=== PATIENT | male | born 1985 | race Caucasian/White ===

== ENCOUNTER 2020-12-21 15:18 | Emergency (ER) | payer OTHER, SELFPAY ==
--- NOTE | ~2020-12-21 | XR_ITS ---
EXAMINATION: XR ankle LT min 3V DATE: 12/21/2020 15:42 INDICATION: Left ankle pain and swelling. TECHNIQUE: 4 views of left ankle were obtained. COMPARISON: None. FINDINGS: Bone alignment is normal. No fracture. There is mild osteoarthritis of talonavicular joint. Ankle soft tissue swelling is noted. IMPRESSION: 1. Mild osteoarthritis of talonavicular joint. Reviewed, dictated and finalized at location A.
--- NOTE | ~2020-12-21 | XR_ITS ---
EXAMINATION: XR foot LT min 3V DATE: 12/21/2020 15:42 INDICATION: Left foot pain and swelling. TECHNIQUE: 4 views of left foot were obtained. COMPARISON: None. FINDINGS: Bone alignment is normal. No fracture. There is mild osteoarthritis of talonavicular joint and first metatarsophalangeal joint. IMPRESSION: 1. Mild polyarticular osteoarthritis. Reviewed, dictated and finalized at location A.
[2020-12-21 15:27] VITALS: BP 107/67; PULSE 92; RESP 16; TEMP 37.1; O2SAT 99
--- NOTE | 2020-12-21 15:32 | ED.LOWEXIN ---
HPI - Extremity Injury (Lower) General Chief Complaint: Extremity Injury, Lower Stated Complaint: Possible broken left Foot Time Seen by Provider: 12/21/20 15:32 Source: patient and RN notes reviewed Mode of arrival: ambulatory Limitations: no limitations History of Present Illness HPI Narrative: 35-year-old male presents to the [facility] with complaints of left foot pain, medial aspect to the medial malleolus and medial aspect of the foot. Patient reports that he rolled his ankle last night. Bruising and swelling noted to the medial malleolus and dorsal aspect of the foot. Decreased range of motion. Patient states the pain is so bad he needs some strong pain medicine. Positive pedal pulse. Sensation intact in all 5 toes. Related Data Home Medications Medication Instructions Recorded Confirmed aripiprazole mg 12/21/20 buprenorphine-naloxone [Zubsolv] tablet SUBLINGUAL 12/21/20 bupropion HCl mg PO 12/21/20 gabapentin 12/21/20 Allergies Allergy/AdvReac Type Severity Reaction Status Date / Time No Known Allergies Allergy Mild Verified 12/21/20 15:35 Review of Systems Review of Systems: All systems reviewed & are unremarkable except as noted in HPI and below Constitutional: Constitutional: Reports no additional constitutional complaints, Denies chills and Denies fever(s) Eyes: Eyes: Reports no additional eye complaints ENT: Reports system reviewed and no additional complaints, except as documented Cardiovascular: Cardiovascular: Reports no additional cardiovascular complaints Respiratory: Respiratory: Reports no additional respiratory complaints Musculoskeletal: Musculoskeletal: Reports as per HPI, Reports arthralgias (Left foot and ankle) and Reports joint swelling (Left ankle) Integumentary/Breasts: Skin/Breast: Reports as per HPI (Bruising, left joint ankle, left foot) Neurologic: Reports system reviewed and no additional complaints, except as documented Psychiatric: Psychiatric: Reports no additional psychiatric complaints Allergic/Immunologic: Allergic/Immunologic: Reports no additional allergic/immunologic complaints [facility] Past Medical History Medical History (Updated 12/22/20 @ 19:32 by Roberta Katz) No significant medical problems Surgical History Surgical History (Updated 12/22/20 @ 19:32 by Roberta Katz) No significant past surgical history Comments At the time of my signature, I reviewed and agree with the nursing past medical, surgical, social, and family history. There is no relevant family history pertinent to the patient complaint. Exam Const: General: healthy appearing, no acute distress and alert Nutritional Appearance: well nourished Orientation/consciousness: patient oriented x3 Limitations: no limitations HENMT: Head: normal to inspection Eyes: Pupils: Equal, round and reactive pupils present Neck: Neck: normal visual inspection, no lymphadenopathy and no meningeal signs Chest: Chest palpation & inspection: normal inspection of the chest Resp: Effort & Inspection: normal respiratory effort and no use of accessory muscles Auscultation: clear to auscultation bilaterally, no crackles, no rales, no rhonchi and no wheezes Cardio: Rate: regular rate Rhythm: regular rhythm Back/Spine/Pelvis: Back: no CVA tenderness Skin: General skin exam: normal color Other: Bruising noted to the medial aspect left ankle and foot along with the dorsal aspect Neuro: General: patient oriented x3, moves all extremities, no meningeal signs and no focal motor deficits Speech: normal speech Gait exam (Neuro): Normal gait present (States he is unable to bear weight.) Extrem: General: normal to inspection Psych: Appearance: grossly normal and well kempt Mental Status: mental status grossly normal Affect: Anxious affect present Course Course Emergency Course: Discharge instructions reviewed with patient, as well as provided in writing per nursing staff. The instructions also
--- NOTE | 2020-12-21 15:42 | PC.NURSE ---
PT DECLINED ICE FOR COMFORT
== END 2020-12-21 16:36 | disposition home or self-care (01) ==
PROVIDERS: Emergency Provider Nurse Practitioner; PCP Internal Medicine
DX: S93.402A Sprain of unspecified ligament of left ankle, initial encounter (principal); S96.912A Strain of unspecified muscle and tendon at ankle and foot level, left foot, initial encounter; X50.9XXA Other and unspecified overexertion or strenuous movements or postures, initial encounter
CPT/HCPCS: 73610; 73630; 99203; G0463

== ENCOUNTER 2021-08-27 08:49 | Emergency (ER) | payer OTHER, SELFPAY ==
[2021-08-27 08:55] VITALS: BP 127/80; PULSE 105; RESP 16; TEMP 36.9; O2SAT 95
--- NOTE | 2021-08-27 09:14 | ED.URI ---
HPI - URI/Sore Throat General Chief Complaint: Upper Respiratory Infection Stated Complaint: Ear Pain/Cough Time Seen by Provider: 08/27/21 09:14 Source: patient and RN notes reviewed Mode of arrival: ambulatory Limitations: no limitations History of Present Illness HPI Narrative: 35-year-old male with history of asthma presents with concern for cough, nasal congestion, ear pain, headache that started yesterday. Reports he has been around his niece and nephew who have a viral infection. He denies any [id number] intervention. Reports he has felt like he needed his inhaler but he cannot find it. He denies fever, body aches, chills, sweats. MD elicited complaint: cough and nasal congestion Related Data Home Medications Medication Instructions Recorded Confirmed aripiprazole 7.5 mg PO DAILY 12/21/20 buprenorphine-naloxone [Zubsolv] 1 tablet SUBLINGUAL 12/21/20 bupropion HCl 300 mg PO DAILY 12/21/20 Allergies Allergy/AdvReac Type Severity Reaction Status Date / Time No Known Allergies Allergy Mild Verified 08/27/21 09:11 Review of Systems Review of Systems: CONSTITUTIONAL: Reports malaise. Denies chills, sweats, or fever. EYES: Denies visual changes, redness, or discharge. ENT: Reports rhinorrhea, congestion, otalgia and sore throat. CARDIOVASCULAR: Denies chest pain, palpitations, or edema. RESPIRATORY: Reports cough. Denies dyspnea. GASTROINTESTINAL: Denies abdominal pain, nausea, vomiting, diarrhea SKIN: Denies rash or itching. MUSCULOSKELETAL: Denies myalgia. NEUROLOGIC: Reports headache. All systems reviewed & are unremarkable except as noted in HPI and below [facility] Past Medical History Medical History (Updated 08/27/21 @ 09:27 by Roberta Rene NP) No significant medical problems Surgical History Surgical History (Updated 12/22/20 @ 19:32 by Roberta Katz APRN) No significant past surgical history Comments At time of signature, agree with nursing past medical, surgical, social and family history. There is no relevant family history pertinent to the presenting complaint Exam Narrative: GENERAL: Nontoxic-appearing and in no acute distress. HEAD: Normocephalic EYES: PERRLA, conjunctivae clear ENT: Nares clear, turbinates erythematous, clear discharge. Mucous membranes moist. TM pearly jackson with dull light reflex bilaterally; no tragal tenderness. Oropharynx erythematous without lesions. Tonsils not enlarged and without exudate, no drooling, no hoarseness, no trismus, uvula midline. NECK: Supple. No lymphadenopathy CHEST: Clear to auscultation, breath sounds equal. No wheezing, rhonchi, rales, or stridor. No respiratory distress, speaks in full sentences. HEART: Regular rate and rhythm. No murmur heard. SKIN: Warm, dry, no rash. NEURO: Alert and oriented x3. PSYCH: Normal mood and affect Course Course Emergency Course: Patient is aware of diagnosis, understands and agrees to treatment plan. Anticipatory guidance given. Patient agrees to follow-up as directed and is aware of reasons to seek care at the emergency department. Portions of this record may have been created with voice recognition software Level of Care: Express Care Visit Vital Signs Vital signs: Vital Signs Temperature 98.4 F 08/27/21 08:55 Pulse Rate 105 H 08/27/21 08:55 Respiratory Rate 16 08/27/21 08:55 Blood Pressure 127/80 08/27/21 08:55 Pulse Oximetry 95 08/27/21 08:55 Temperature 98.4 F 08/27/21 08:55 Pulse Rate 105 H 08/27/21 08:55 Respiratory Rate 16 08/27/21 08:55 Blood Pressure 127/80 08/27/21 08:55 Pulse Oximetry 95 08/27/21 08:55 Reviewed. MDM - URI/Sore Throat MDM Narrative Medical decision making narrative: Differential diagnosis considered: Nunez virus, strep pharyngitis, allergic rhinitis, upper respiratory tract infection, sinusitis, rhinosinusitis, nasopharyngitis. viral pharyngitis, otitis media, otitis externa, pneumonia, bronchitis, viral cough syndrome, viral sy
== END 2021-08-27 09:30 | disposition home or self-care (01) ==
PROVIDERS: Emergency Provider Nurse Practitioner; PCP Internal Medicine
DX: J06.9 Acute upper respiratory infection, unspecified (principal); J45.909 Unspecified asthma, uncomplicated
CPT/HCPCS: 87081; 87804; 87880; 99213; G0463

== ENCOUNTER 2023-09-02 17:11 | Emergency (ER) | payer OTHER, SELFPAY ==
[2023-09-02 17:16] VITALS: BP 131/87; PULSE 88; RESP 16; TEMP 36.1; O2SAT 99
--- NOTE | 2023-09-02 17:27 | ED.URI ---
HPI - URI/Sore Throat General Chief Complaint: Upper Respiratory Infection Stated Complaint: sore throat/headache Time Seen by Provider: 09/02/23 17:27 History of Present Illness HPI Narrative: 37-year-old male presented for complaint of sore throat, onset last night. Endorses daughter tested positive for strep 5 days ago. Denies shortness of breath, wheezing nausea, vomiting, fevers or chills. Patient admits to nasal congestion, and states been worsening over the past few weeks and has been using generic Afrin daily. Related Data Home Medications Medication Instructions Recorded Confirmed aripiprazole 10 mg tablet 7.5 mg PO DAILY 12/21/20 buprenorphine 5.7 mg-naloxone 1.4 1 tablet sublingual 12/21/20 mg sublingual tablet (Zubsolv) bupropion HCl 300 mg 24 hr tablet, 300 mg PO DAILY 12/21/20 extended release Allergies Allergy/AdvReac Type Severity Reaction Status Date / Time No Known Allergies Allergy Mild Verified 08/27/21 09:11 Review of Systems Review of Systems: CONSTITUTIONAL: Denies body aches, fever, chills, or sweats. EYES: Denies visual changes, redness, or discharge. ENT: reports rhinorrhea, congestion, sore throat CARDIOVASCULAR: Denies chest pain, palpitations, or edema. RESPIRATORY: Denies dyspnea. SKIN: Denies rash, itching, or wounds. MUSCULOSKELETAL: Denies back pain, joint pain, or myalgia. NEUROLOGIC: Denies headache PMF Past Medical History Medical History No significant medical problems Surgical History Surgical History No significant past surgical history Exam Narrative: GENERAL: well-appearing, no acute distress. EYES: conjunctivae clear ENT: Mucous membranes moist. TMs pearly jackson with normal light reflex bilaterally; no tragal tenderness. Oropharynx mildly erythematous without lesions. Tonsils not enlarged and without exudate. No drooling, no hoarseness, no trismus, uvula midline. No tripod positioning, hot potato voice, or soft palate swelling. NECK: Supple. No lymphadenopathy CHEST: Clear to auscultation, breath sounds equal. HEART: Regular rate and rhythm. No murmur heard. SKIN: Warm, dry, no rash. NEURO: Alert and oriented x3. Course Course Emergency Course: Patient is aware of diagnosis, understands and agrees to treatment plan. Anticipatory guidance given. Patient agrees to follow-up as directed and is aware of reasons to seek care at the emergency department. Portions of this record may have been created with voice recognition software Level of Care: Express Care Visit Vital Signs Vital signs: Vital Signs Temperature 97 F L 09/02/23 17:16 Pulse Rate 88 09/02/23 17:16 Respiratory Rate 16 09/02/23 17:16 Blood Pressure 131/87 09/02/23 17:16 Pulse Oximetry 99 09/02/23 17:16 Oxygen Delivery Room Air 09/02/23 17:16 Temperature 97 F L 09/02/23 17:16 Pulse Rate 88 09/02/23 17:16 Respiratory Rate 16 09/02/23 17:16 Blood Pressure 131/87 09/02/23 17:16 Pulse Oximetry 99 09/02/23 17:16 Oxygen Delivery Room Air 09/02/23 17:16 MDM - URI/Sore Throat MDM Narrative Medical decision making narrative: Neg strep result reviewed with pt. Advised against recurrent use of Afrin, pt requested Rx zyrtec and flonase. Advise supportive treatments. Patient is appropriate for outpatient treatment and follow-up. Differential Diagnosis Differential diagnosis: Likely upper respiratory infection, otitis media, sinusitis, viral infection, influenza and pharyngitis Discharge Plan Discharge Clinical Impression: Pharyngitis Patient Disposition: Home, Self-Care Condition: Stable Instructions: Antibiotic Form, Pharyngitis (ED) Additional Instructions: Rapid strep swab was negative today You will be notified in a few days if the culture comes back positive for strep, and appropriate antibio
== END 2023-09-02 17:43 | disposition home or self-care (01) ==
PROVIDERS: Emergency Provider Nurse Practitioner Family; PCP Internal Medicine
DX: J02.0 Streptococcal pharyngitis (principal)
CPT/HCPCS: 87081; 87147; 87880; 99213; G0463